=== PATIENT | male | born 1985 ===

== ENCOUNTER 2025-07-02 21:25 | Emergency (ER) | payer SELFPAY ==
[~2025-07-02] VITALS: Ht 172.7 cm; Wt 81.7 kg
== END 2025-07-02 21:58 | disposition home or self-care (01) ==
LOC: ER 21:25
DX: T75.4XXA Electrocution, initial encounter (principal); Y35.831A Legal intervention involving a conducted energy device, law enforcement official injured, initial encounter
CPT/HCPCS: 99282